=== PATIENT | male | born 1955 | race Caucasian/White ===

== ENCOUNTER 2020-05-21 03:03 | Outpatient (CLI) | payer MEDICARE, SELFPAY ==
[2020-05-21 20:04] LABS: SARS-CoV-2 RNA PCR Negative
== END 2020-05-21 03:04 | disposition home or self-care (01) ==
LOC: ANHCOVIDDT 03:04
PROVIDERS: PCP Family Medicine; Visit Provider Internal Medicine Gastroenterology
DX: Z01.812 Encounter for preprocedural laboratory examination (principal); Z20.828 Contact with and (suspected) exposure to other viral communicable diseases
CPT/HCPCS: 87635; C9803; U0003

== ENCOUNTER 2020-05-23 01:14 | Day surgery (SDC) | payer MEDICARE, SELFPAY ==
[2020-05-16 14:36] VITALS: BMI 21.4
[2020-05-23 06:55] VITALS: BP 115/61; PULSE 48; RESP 22; TEMP 36.3; O2SAT 100; BMI 20.5
[2020-05-23] MEDS: LACTATED RINGERS 1,000 ML 150 ML IV CONT (06:59)
--- NOTE | 2020-05-23 07:25 | WPDANESEPPF ---
Anes - Initial Pre Proc Eval Procedure: Operation Date: 05/23/20 07:30 Proposed Procedures p Screening Colonoscopy - Blayne Joyce MD Date/Time: 05/23/20 07:25 Surgeon: Blayne Joyce MD Pre Op Diagnosis: hx of colon polyps Patient Data Age: 65 Gender: M Height: 5 ft 8 in Weight: 61.2 kg Last Vital Signs Temp 97.3 F L 05/23/20 06:55 Pulse 48 L 05/23/20 06:55 Resp 22 H 05/23/20 06:55 BP 115/61 05/23/20 06:55 Pulse Ox 100 05/23/20 06:55 Allergies Allergy/AdvReac Type Severity Reaction Status Date / Time No Known Allergies Allergy Verified 05/23/20 06:53 Home Medications Medication Instructions Recorded Confirmed Type atenolol 12.5 mg PO DAILY 05/16/20 05/16/20 History buspirone 15 mg PO BID 05/16/20 05/16/20 History finasteride 5 mg PO DAILY 05/16/20 05/16/20 History paroxetine HCl 20 mg PO DAILY 05/16/20 05/16/20 History Patient hx anesthesia problems: none Family hx anesthesia problems: none [facility] Past Medical History Medical History (Updated 05/23/20 @ 07:25 by Isaac Lorenzo MD) Anxiety Palpitations Social History Social History Smoking status: Never smoker Alcohol intake: never Substance use: never Substance use type: does not use Living arrangements: with family Spiritual care concerns: Yes Anes - Eval Final PreProcedure Day of Procedure 05/23/20 07:25 Patient weight: normal Heart: regular rate and rhythm Lungs: clear to auscultation Airway: Mallampati scale class II Neurological: alert and oriented Last oral intake: >/= 8 hours ASA classification: II Emergent: no Anesthetic plan: proceed Anesthesia type and monitoring: general GIVS and standard monitoring Informed Consent: The patient's anesthetic plan and its attendant risks and benefits were discussed with the patient/family/POA. Questions were solicited and answers provided to the satisfaction of the patient/family/POA.
--- NOTE | 2020-05-23 07:34 | SUR.PREOP ---
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
--- NOTE | 2020-05-23 07:54 | P.CONGI_ITS ---
Assessment and Plan Assessment and plan (1) History of colon polyps: Code(s): Z86.010 - Personal history of colonic polyps Status: Acute Assessment and Plan: patient has a history of adenomatous colon polyp removed in 1999 14. Plan is for follow-up colonoscopy at this time. GI Consult Note Consult date/time: 05/23/20 07:54 HPI: Jerson Gallardo is a 65 year old male seen in evaluation at the request of Dr Navneet Sequeira.Patient presents for screening colonoscopy. Patient has a hi story of adenomatous colon polyp removed from the colon in 2013. Patient states his current weight appetite bowel movements are normal. Patient denies abdominal pain. His family history is noncontributory. Past medical history is significant for BPH. 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 Family history is noncontributory. Review of Systems Review of Systems: All systems reviewed & are unremarkable except as noted in HPI and below PMFSH Past Medical History Medical History (Updated 05/23/20 @ 07:57 by Blayne Joyce MD) Anxiety Palpitations Social History Social History Smoking status: Never smoker Alcohol intake: never Substance use: never Substance use type: does not use Living arrangements: with family Spiritual care concerns: Yes Meds Home Medications and Allergies Home Medications Medication Instructions Recorded Confirmed Type atenolol 12.5 mg PO DAILY 05/16/20 05/16/20 History buspirone 15 mg PO BID 05/16/20 05/16/20 History finasteride 5 mg PO DAILY 05/16/20 05/16/20 History paroxetine HCl 20 mg PO DAILY 05/16/20 05/16/20 History Allergies Allergy/AdvReac Type Severity Reaction Status Date / Time No Known Allergies Allergy Verified 05/23/20 06:53 Vital Signs Vital Signs - 24 hr 05/23/20 06:55 Temperature 97.3 F L Pulse Rate 48 L Respiratory Rate 22 H Blood Pressure 115/61 Pulse Oximetry 100 Exam Narrative: Exam Narrative: Physical exam reveals patient to be alert. Vital signs stable. HEENT exam unremarkable. Patient is anicteric. Lungs are clear to auscultation and percussion. Heart is without murmur or extra sounds. Abdominal exam bowel sounds are present soft nontender with no organomegaly. Digital external rectal exam is normal
[2020-05-23 07:58] VITALS: BP 85/47; PULSE 46; RESP 18; O2SAT 100
[2020-05-23 08:08] VITALS: BP 101/56; PULSE 47; RESP 18; O2SAT 100
[2020-05-23 08:18] VITALS: BP 100/55; PULSE 46; RESP 18; O2SAT 100
== END 2020-05-23 08:38 | disposition home or self-care (01) ==
PROVIDERS: PCP Family Medicine; Visit Provider Internal Medicine Gastroenterology
PROC: 0DJD8ZZ Inspection of Lower Intestinal Tract, Via Natural or Artificial Opening Endoscopic (ICD-10-PCS; CPT 45378; principal; 2020-05-23 07:30)
DX: Z12.11 Encounter for screening for malignant neoplasm of colon (principal); K63.5 Polyp of colon; K57.30 Diverticulosis of large intestine without perforation or abscess without bleeding; K64.8 Other hemorrhoids; N40.0 Benign prostatic hyperplasia without lower urinary tract symptoms; F41.9 Anxiety disorder, unspecified
CPT/HCPCS: 45385; 88305; J2704; J7120

== ENCOUNTER 2021-04-11 10:33 | Outpatient (CLI) | payer MEDICARE, SELFPAY ==
--- NOTE | 2021-04-11 | ECG_ITS ---
Measurements Intervals [place] Rate: 57 P: 76 AR: 179 QRS: 61 QRSD: 105 T: 74 QT: 415 QTc: 406 Interpretive Statements SINUS BRADYCARDIA POSSIBLE LEFT ATRIAL ENLARGEMENT DELAYED PRECORDIAL R/S TRANSITION BORDERLINE ECG Electronically Signed On 04-11-2021 11:09:55 CDT by Rodrigo Raymond D.O.
== END 2021-04-11 10:34 | disposition home or self-care (01) ==
LOC: ANHSURGERY 10:39
PROVIDERS: PCP Family Medicine; Visit Provider Urology
DX: R00.2 Palpitations (principal); Z01.818 Encounter for other preprocedural examination; R94.31 Abnormal electrocardiogram [ECG] [EKG]
CPT/HCPCS: 93005

== ENCOUNTER 2021-04-17 03:03 | Day surgery (SDC) | payer MEDICARE, SELFPAY ==
[2021-04-10 09:59] VITALS: BMI 20.9
[2021-04-17 07:15] VITALS: BP 121/63; PULSE 51; RESP 16; TEMP 36.5; O2SAT 100
--- NOTE | 2021-04-17 07:21 | WPDHPUPDATE1 ---
History and Physical Update Update Date/Time: 04/17/21 07:21 History and Physical has been reviewed, including an updated exam of the patient. There are NO changes in the patient's condition. Risks, benefits, and alternatives have been discussed and questions answered. Patient agrees to proceed with procedure.
--- NOTE | 2021-04-17 07:46 | P.PNAN_ITS ---
Anes - Initial Pre Proc Eval Procedure: Operation Date: 04/17/21 09:00 Proposed Procedures p Trans Rectal Prostate Biopsy - Apollo Blake MD Date/Time: 04/17/21 07:46 Surgeon: Apollo Blake MD Pre Op Diagnosis: elevated PSA Patient Data Age: 66 Gender: M Height: 1.74 m Weight: 63.63 kg Allergies Allergy/AdvReac Type Severity Reaction Status Date / Time No Known Allergies Allergy Verified 04/10/21 09:57 Home Medications Medication Instructions Recorded Confirmed Type buspirone 15 mg PO BID 05/16/20 04/10/21 History finasteride 5 mg PO HS 05/16/20 04/10/21 History paroxetine HCl 20 mg PO HS 05/16/20 04/10/21 History metoprolol tartrate 12.5 mg PO DAILY 04/17/21 04/17/21 History Patient hx anesthesia problems: none Family hx anesthesia problems: none [facility] Past Medical History Medical History (Updated 05/23/20 @ 07:57 by Blayne Joyce MD) Anxiety Palpitations Surgical History Surgical History (Updated 04/17/21 @ 07:46 by Alexander Juan MD) H/O colonoscopy Social History Social History Smoking status: Never smoker Second hand tobacco smoke exposure: No Alcohol intake: never Substance use: never Substance use type: does not use Living arrangements: with family Spiritual care concerns: Yes Anes - Eval Final PreProcedure Day of Procedure 04/17/21 07:46 Patient weight: normal Heart: regular rate and rhythm Lungs: clear to auscultation Airway: Mallampati scale class II Neurological: alert and oriented Last oral intake: >/= 8 hours ASA classification: II Emergent: no Anesthetic plan: proceed Anesthesia type and monitoring: general GIVS and standard monitoring Informed Consent: The patient's anesthetic plan and its attendant risks and benefits were discussed with the patient/family/POA. Questions were solicited and answers provided to the satisfaction of the patient/family/POA.
[2021-04-17] MEDS: LACTATED RINGERS 1,000 ML 30 ML IV CONT (07:52)
[2021-04-17] MEDS: ceFAZolin 2 GM/D5W 50 ML 2 GM/50 ML BAG IVPB (08:45)
--- NOTE | 2021-04-17 09:07 | W.PM.PROC2 ---
Procedure Note - Detailed Date of Procedure 04/17/21 Pre-op Diagnosis Elevated PSA Post-op Diagnosis same Procedure Performed Transrectal ultrasound of prostate and ultrasound-guided biopsy of prostate Surgeon Apollo Blake MD Anesthesia MAC Description of Procedure The patient was place in a left lateral position after administration of systemic sedation by the anesthesia department. Transrectal ultrasound of the prostate is undertaken at 8.0Hz. Pre-operative antibiotics were given. The prostate capsule is intact and the tissue has a normal echo texture. There is a small median lobe and minimal PVR in the bladder. The seminal vesicles have a normal appearance ultrasonically. The prostate measured 16.7gm in size. Using ultrasound guidance a total of 12 biopsy cores are obtained. The ultrasound probe was removed and the patient was taken to the recovery room in good condition. Estimated Blood Loss 5 Drains No Packing No Pathology yes Complications No immediate complications Condition stable Disposition PACU
[2021-04-17 09:14] VITALS: BP 96/55; PULSE 57; RESP 14; O2SAT 100
[2021-04-17] MEDS: levoFLOXacin 500 MG/D5W 100 ML 500 MG/100 ML BAG 100 MG IVPB (09:36)
[2021-04-17 09:45] VITALS: BP 94/57; PULSE 55
--- NOTE | 2021-04-17 10:04 | SUR.PHASEII ---
0945: Patient had a baseball size spot of blood on the stretcher when he got into the chair.
[2021-04-17 10:15] VITALS: BP 105/62; PULSE 55
--- NOTE | 2021-04-17 11:46 | SUR.PHASEII ---
No blood noted on chair when patient stood up to get dressed.
== END 2021-04-17 10:25 | disposition home or self-care (01) ==
PROVIDERS: PCP Family Medicine; Visit Provider Urology
PROC: (CPT 55700; principal; 2021-04-17 09:00)
DX: N40.1 Benign prostatic hyperplasia with lower urinary tract symptoms (principal); R97.20 Elevated prostate specific antigen [PSA]; R33.8 Other retention of urine; R31.0 Gross hematuria; N41.1 Chronic prostatitis; N41.0 Acute prostatitis; F41.9 Anxiety disorder, unspecified; R00.2 Palpitations; Z85.46 Personal history of malignant neoplasm of prostate
CPT/HCPCS: 55700; 76872; 93005; G0416; J0690; J1956; J2250; J2370; J2704; J3010; J7120